=== PATIENT | female | born 1970 | race Caucasian/White ===

== ENCOUNTER 2023-08-29 08:30 | Observation (INO) ==
[~2023-08-29 08:30] MED LIST: Buffered Lidocaine 1% SYRIN 1 ml INTRADERM ONE; Bupivacaine 0.5% SDV PF 30ML VIAL ONE; Famotidine IV 10 MG/ML 2 ml VIAL (20 mg) IV ONE; Famotidine IV 10 MG/ML 2 ml VIAL (20 mg) ONE; Lactated Ringers 1000 ml BAG 1,000 ML IV SCH; Lidocaine 2% PF 5 ML VIAL ONE; Midazolam 2 mg/2 ml VIAL 1 mg/ml 2 ml VIAL (2 mg) ONE; Naloxone 0.4 mg VIAL 0.4 mg/ml 1 ml VIAL IV PRN; Ondansetron ODT 4 mg TAB 4 MG TAB ONE; Prochlorperazine 5 mg/ml 2 ml VIAL (10 mg) IV PRN; Propofol 10 MG/ML 20 ML BTL ONE; Rocuronium 50 mg VIAL 10 mg/ml 5 ml VIAL (50 mg) ONE; Scopolamine 1 mg/72hr PATCH ONE; Sevoflurane BOTTLE ONE; ceFOXitin 2 GM IVPREMIX 2 GM/50 ML BAG ONE; fentaNYL 100 mcg/2 ml 50 MCG/ML VIAL IV PRN; fentaNYL 250 mcg/5 ml 50 MCG/ML 5 ml VIAL (250 MCG) ONE
[2023-08-29] MEDS ORDERED: Rocuronium 50 mg VIAL 10 mg/ml 5 ml VIAL (50 mg) ONE (11:06)
[2023-08-29] MEDS ORDERED: Propofol 10 MG/ML 20 ML BTL ONE (11:18)
[2023-08-29] MEDS ORDERED: HYDROmorphone 0.5 MG/0.5 ML SYRINGE ONE (11:38)
[2023-08-29] MEDS ORDERED: Ondansetron 4 mg VIAL 2 MG/ML 2 ml VIAL ONE (12:10)
[2023-08-29 15:47] VITALS: BP 131/78
== END 2023-08-29 15:50 | disposition home or self-care (01) ==
LOC: AA
PROVIDERS: ADMIT Obstetrics & Gynecology; ATTEND Obstetrics & Gynecology